=== PATIENT | female | born 1940 | race Caucasian/White ===

== ENCOUNTER 2017-12-21 10:48 | Emergency (ER) | payer MEDICARE, MEDICAID ==
[~2017-12-21] VITALS: Ht 157.5 cm; Wt 64.5 kg
[~2017-12-21 10:48] MED LIST: ASPI81TA87 PO; EZET1TAB37 PO; GLYB5TAB8 PO; HYDR-309 PO; LEVO500 PO; LISI10TA PO; METF10004 PO; NIFE30TA98 PO; PIOG15TA23 PO
[2017-12-21] MEDS ORDERED: VARI1940 IM (11:04)
[2017-12-21] MEDS ORDERED: AMLO-511 PO (11:04)
[2017-12-21] MEDS ORDERED: CHL25 PO (11:04)
[2017-12-21] MEDS ORDERED: INSU100V12 SQ (11:04)
[2017-12-21] MEDS ORDERED: SITA100 PO (11:04)
[2017-12-21 11:08] LABS: GLUCOSE,POINT OF CARE 139 MG/DL (70-110)
[2017-12-21] MEDS ORDERED: IBUPROFEN 600 MG TABLET PO ONE (11:45)
[2017-12-21 12:45] VITALS: BP 148/84
== END 2017-12-21 13:38 | disposition home or self-care (01) ==
LOC: EMS 10:50
DX: S91.104A Unspecified open wound of right lesser toe(s) without damage to nail, initial encounter (principal); I10 Essential (primary) hypertension; E11.9 Type 2 diabetes mellitus without complications; X58.XXXA Exposure to other specified factors, initial encounter; Y93.89 Activity, other specified; Y92.89 Other specified places as the place of occurrence of the external cause; Y99.8 Other external cause status
CPT/HCPCS: 99284

== ENCOUNTER 2018-07-21 14:24 | Emergency (ER) | payer MEDICARE, MEDICAID ==
[~2018-07-21] VITALS: Ht 152.4 cm; Wt 68.2 kg
[~2018-07-21 14:24] MED LIST changes: +AMLO-511 PO; +CHL25 PO; -EZET1TAB37 PO; -GLYB5TAB8 PO; -HYDR-309 PO; +INSU100V12 SQ; -LEVO500 PO; +METF-446 PO; -METF10004 PO; -NIFE30TA98 PO; -PIOG15TA23 PO; +SITA100 PO; +VARI1940 IM
[2018-07-21 14:49] LABS: GLUCOSE,POINT OF CARE 325 MG/DL (70-110)
[2018-07-21] MEDS ORDERED: KETOROLAC TROMETHAMINE 30 MG/ML VIAL IVP ONE (15:00)
[2018-07-21] MEDS ORDERED: SODIUM CHLORIDE 0.9% 1,000 ML IV ONE (15:00)
[2018-07-21 17:44] VITALS: BP 104/60
== END 2018-07-21 17:51 | disposition home or self-care (01) ==
LOC: EMS 14:25
DX: S70.02XA Contusion of left hip, initial encounter (principal); E11.9 Type 2 diabetes mellitus without complications; I10 Essential (primary) hypertension; Z96.652 Presence of left artificial knee joint; Z79.82 Long term (current) use of aspirin; Z79.899 Other long term (current) drug therapy; W01.0XXA Fall on same level from slipping, tripping and stumbling without subsequent striking against object, initial encounter; Y93.89 Activity, other specified; Y92.89 Other specified places as the place of occurrence of the external cause; Y99.8 Other external cause status
CPT/HCPCS: 73503; 82962; 96374; 99283; J1885; J7030

== ENCOUNTER 2020-08-19 05:27 | Emergency (ER) | payer MEDICAID, MEDICARE ==
[~2020-08-19] VITALS: Ht 154.9 cm; Wt 68.0 kg
[~2020-08-19 05:27] MED LIST changes: +AMLO-257 PO; -AMLO-511 PO; -INSU100V12 SQ; -VARI1940 IM
[2020-08-19] MEDS ORDERED: ATOR20TA86 PO (05:52)
[2020-08-19] MEDS ORDERED: NAPR-1025 PO (05:52)
[2020-08-19] MEDS ORDERED: LIDOCAINE 5% TRANSDERMAL PATCH TD ONE (06:45)
[2020-08-19] MEDS ORDERED: ACETAMINOPHEN 325 MG TABLET PO ONE (06:45)
[2020-08-19 06:59] LABS: BASOPHILS % (AUTO) 0.5 % (0.0-2.0); EOSINOPHILS % (AUTO) 1.3 % (1.0-6.0); HEMATOCRIT 36.5 % (36-46); HEMOGLOBIN 12.1 g/dL (12.0-16.0); LYMPHOCYTES # (AUTO) 0.8 K/uL (1.0-4.8); LYMPHOCYTES % (AUTO) 11.9 % (22.0-44.0); MEAN CORPUSCULAR HEMOGLOBIN 29.2 pg (26.0-34.0); MEAN CORPUSCULAR HGB CONC 33.2 G/dL (31.0-37.0); MEAN CORPUSCULAR VOLUME 88 fL (80-100); MONOCYTES # (AUTO) 0.5 K/uL (0.1-1.0); NEUTROPHILS # (AUTO) 5.2 K/uL (1.8-7.7); NEUTROPHILS % (AUTO) 78.3 % (40.0-70.0); PLATELET COUNT (AUTO) 148 K/uL (150-450); RED BLOOD CELL COUNT(AUTO) 4.15 MIL/uL (4.00-5.20); RED CELL DISTRIBUTION WIDTH 13.7 % (11.5-14.5)
[2020-08-19 07:05] LABS: ANION GAP 6 mmol/L (8-16); CARBON DIOXIDE 33 mmol/L (22-29); CHLORIDE 107 mmol/L (98-107); CREATININE 0.81 mg/dL (0.60-1.30); GLOMERULAR FILTR. RATE CALC > 60 mL/min (>60); GLUCOSE,RANDOM 333 mg/dL (70-110); POTASSIUM 5.2 mmol/L (3.5-5.1); SODIUM SERUM 146 mmol/L (136-145); UREA NITROGEN, BLOOD 21 mg/dL (7-18)
[2020-08-19 07:11] LABS: ALANINE AMINOTRANSFERASE 17 U/L (12-78); ALBUMIN 3.2 g/dL (3.4-5.0); ALKALINE PHOSPHATASE 123 U/L (46-116); ASPARTATE AMINOTRANSFERASE 12 U/L (15-37); BILIRUBIN,TOTAL 1.3 mg/dL (0.1-1.0)
[2020-08-19] MEDS ORDERED: PERTUSS(ACELL),DIPH,TET VAC/PF 0.5 ML VIAL IM ONE (09:00)
[2020-08-19 09:15] VITALS: BP 168/91
[2020-08-19] MEDS ORDERED: AmLODIPine BESYLATE 5 MG TABLET PO SCH (10:00)
[2020-08-19] MEDS ORDERED: INSULIN LISPRO 100 UNITS/ML SQ PRN (10:00)
[2020-08-19] MEDS ORDERED: DEXTROSE 5%-WATER 1,000 ML IV ONE (10:00)
[2020-08-19] MEDS ORDERED: ACETAMINOPHEN 325 MG TABLET PO PRN (10:00)
[2020-08-19] MEDS ORDERED: DEXTROSE 50%-WATER 25 GM/50 ML SYRINGE IVP PRN (10:00)
[2020-08-19] MEDS ORDERED: MAGNESIUM HYDROXIDE SUSPENSION 30 ML UDCUP PO PRN (10:00)
[2020-08-19] MEDS ORDERED: OxyCODONE HCL/ACETAMINOPHEN 5-325 MG TABLET PO PRN (10:00)
[2020-08-19] MEDS ORDERED: MetFORMIN HCL 500 MG TABLET PO SCH (17:30)
[2020-08-19] MEDS ORDERED: DOCUSATE SODIUM 100 MG CAPSULE PO SCH (21:00)
[2020-08-20] MEDS ORDERED: FAMOTIDINE 20 MG TABLET PO SCH (09:00)
== END 2020-08-19 10:09 | disposition other institution, planned readmission (95) ==
LOC: EMS 05:28
DX: S22.028A Other fracture of second thoracic vertebra, initial encounter for closed fracture (principal); S22.42XA Multiple fractures of ribs, left side, initial encounter for closed fracture; G96.08 Other cranial cerebrospinal fluid leak; W19.XXXA Unspecified fall, initial encounter; Y93.89 Activity, other specified; Y92.89 Other specified places as the place of occurrence of the external cause; Y99.8 Other external cause status
CPT/HCPCS: 70450; 71250; 72125; 72128; 90471; 90715; 99285; 99291; 36415-L1; 36415-TC; 71045-TC